=== PATIENT | female | born 1990 | race Caucasian/White ===

== ENCOUNTER 2018-02-07 08:17 | Emergency (ER) | payer OTHER, BC ==
[~2018-02-07] VITALS: Ht 157.5 cm; Wt 62.7 kg
[2018-02-07 08:19] VITALS: TEMP 37.1; Ht 157.5 cm; Wt 62.7 kg
[2018-02-07 09:40] VITALS: BP 112/67; PULSE 80; O2SAT 99
--- NOTE | 2018-02-07 16:36 | EMERGENCY ROOM VISIT NOTE ---
ED Visit Note First contact with patient: 08:23 Chief Complaint: Head injury. History of Present Illness: Ms. Monterroso is a 27-year-old white female who is brought into the ED via ambulance with a head injury. Patient reports approximately 30 minutes ago she was at work at a local daycare. She reports she was struck in the head in the left temporoparietal area with a soccer ball. She reports at the time of the injury she had no loss of consciousness. She reports since the injury she has had trouble speaking; her speech is slowed and she has intermittently difficulty finding the correct words to use. She has not identified any aggravating or alleviating factors related to this symptom. She has not taken any medications for the symptom prior to arrival at the hospital. She denies any previous similar symptoms. Associated with her difficulty speech she also reports she is having a throbbing pain in the area where the soccer ball struck her head. She describes this discomfort as a throbbing sensation. She rates her discomfort 3/10. Her pain is nonradiating. Has not identified any aggravating or alleviating factors related to the pain. Once again she has not had a medication for pain or her other symptoms prior to arrival at the hospital. She denies dizziness, lightheadedness, visual changes, difficulty swallowing, hearing changes, difficulty ambulating/coordinating body movements, neck/back pain, chest pain, shortness of breath, abdominal pain, nausea/vomiting, extremity weakness/numbness/tingling. Review of Systems: As noted above in history of present illness. All body systems were reviewed and found to be negative as noted above. Past Medical History: Patient denies Current Medications: Patient denies. Allergies to Medications: Patient denies. Social History: Patient denies. Physical Examination: Vital Signs: Date Time Temp Pulse Resp B/P (MAP) Pulse Ox O2 Delivery O2 Flow Rate FiO2 02/07/18 09:40 80 16 112/67 99 02/07/18 08:19 37.1 89 16 123/79 100 Room Air GENERAL: 27-year-old female in mild due to symptoms, nontoxic-appearing, afebrile and hemodynamically stable. NEUROLOGICAL: Awake, alert and oriented to person, place and time. Answering questions appropriately and following commands. Normal gait. Good hand eye coordination. No focal motor or sensory deficits. Romberg test negative. Pronator drift test negative. Cranial nerves II through XII grossly intact. Good short-term and long-term recall. Able to spell and count backwards. Normal heel luis test. Normal rapid alternating movements of the hands and fingers. SKIN: Warm, dry and pink. No soft tissue trauma noted. HEENT: Atraumatic and normocephalic. Skull: No bony swelling/ecchymosis, deformity or crepitus. No raccoons eyes or gillespie signs. No drainage from the ears of the nostril; no hemotympanum. Face: No bony deformity, bony crepitus or ecchymosis. PERRLA. EOMI without nystagmus. Sclera white and conjunctiva pink. Oral cavity moist and pink. Airway is patent. Speech was slowed and slightly choppy; not completely fluid. Her speech was clear and pronunciation perfect. Trachea midline. No jugular venous distention. BACK: No tenderness over the bony cervical and thoracic spine. Full range of motion of the cervical spine. THORAX: Lungs sounds are clear to auscultation and equal bilaterally with symmetrical chest wall. ABDOMEN: Flat, soft and nontender. Positive bowel sounds in all quadrants. No guarding, rigidity or organomegaly. EXTREMITIES: Moves all extremities well on command and with purpose. All distal neurovascular statuses are intact and equal bilaterally. 5/5 muscle strength in all movements of the shoulders, elbows, forearms, wrists, hips, knees, ankles and feet. ED Course: Patient is assessed as noted above. Patient's medication list was reviewed. Patient was offered pain medication and refused. I had a lengthy conversation with the patient and her about the risks and benefits of CAT scan and the possible need for additional scanning if she returned for worsening symptoms. They discuss this issue among themselves and when I arrived in the room for recheck patient reports that she would like to use a watch and wait approach and not have a CAT scan currently. Patient and were educated about today's findings and instructed on her treatment plan; they verbalized understanding and agreement with this plan. Clinical Impression: Closed head injury. Decision-Making: Initially my differential diagnosis I considered closed head injury, severe concussion, intracranial bleed, skull fractures, subdural hematoma and other causes. Disposition: Patient discharged home in stable condition accompanied by her ; prior to departure she was reassessed and subjectively reported she was feeling slightly better and rated her discomfort 2/10 Plan: Patient was encouraged to rest for the next 48 hours; she was signed off of work for 48 hours. Patient was encouraged you 650 mg as needed for pain. Patient was encouraged use ice on areas of pain and swelling 4-5 times a day for 20-30 minutes. Patient was educated on signs of head injury. Patient was encouraged to follow-up with Workmen's Compensation practitioner for definitive care and treatment. She was also encouraged to have Workmen's Compensation provide instruction for her to return to work. Patient was encouraged return the ED for any signs of worsening head injury or any new/concerning symptoms.
== END 2018-02-07 09:41 | disposition home or self-care (01) ==
LOC: EDBD 08:17 → C.EDA 08:18
DX: S09.90XA Unspecified injury of head, initial encounter (principal); R51 Headache; R47.89 Other speech disturbances; W21.02XA Struck by soccer ball, initial encounter; Y92.210 Daycare center as the place of occurrence of the external cause; Y99.0 Civilian activity done for income or pay

== ENCOUNTER 2019-01-17 12:15 | Inpatient (IN) ==
--- OUTSIDE RECORDS SUMMARY | 2019-01-17 12:20 | External Medical Summary | Continuity of Care Document ---
:1990 Author Name Sea Garza, Provider Address Unavailable Unavailable , Care Team Providers Name Role Phone Ervin Berman M.D. Unavailable [email or web address] [email or web address], [email or web address] Unavailable Unavailable Unavailable Unavailable Unavailable Problems History of miscarriage (V13.29) (Z87.59) Encounter for supervision of normal firs t in third trimester (V22.0) (Z34.03) Allergies and Adverse Reactions No Known Drug Allergies (Allergy) Medications Vitamins TABS Refills: 0 Procedures Non-stress test Date: 12-Jan-2019 Immunizations Fluzone Quadrivalent 0.5 ML Intramuscular Suspension P refilled Syringe On: 28-Sep-2018 16:29 Lot #: [id number], SANO[employer] PA[employer]UR Tdap (Adacel) On: 27-Oct-2018 8:29 Lot #: [id number], [employer] PA[employer]UR Family History Unknown Family Member Family history of Multiple gestation (651.90) Status: Active Comments: Family History (O30.90) Family history of anemia (V18.2) (Z83.2) Status: Active Comments: Family History Family history of diabetes mellitus (V18.0) Status: Active Comments: Family History (Z83.3) Family history of cardiac disorder (V17.49) Status: Active Comments: Family History (Z82.49) Father Family history of anemia (V18.2) (Z83.2) Status: Active cousin Family history of anemia (V18.2) (Z83.2) Status: Active aunt Family history of diabetes mellitus (V18.0) (Z83.3) Status: Active Family history of depression (V17.0) (Z81.8) Status: Active uncle Family history of diabetes mellitus (V18.0) (Z83.3) Status: Active Grandfather Family history of cardiac disorder (V17.49) (Z82.49) Status: Active Sister Family history of depression (V17.0) (Z81.8) Status: Active cousin Family history of depression (V17.0) (Z81.8) Status: Active Plan of Treatment Planned Encounters Appointment; Ervin Berman M.D. Start: 19-Jan-2019 15:20 Request Planned Observations Planned Goals not documented Results Group B Strep/LEE 22-Dec-2018 18:33 GRP B BETA STREP CULTURE - LEE ORDERED P ROCEDURE : GRP B Beta Strep Culture -LEE; Speciment : V aginal/Rectal Source of Specimen: Vaginal/ Rectal Group B St rep Culture : No Group B Strep isolated Vital Signs 12-Jan-2019 14:05 Systolic 114 mm[Hg] Diastolic 80 mm[Hg] Weight 158.8 lb Height 62.5 in BSA Calculated 1.74 m2 BMI Calculated 28.58 kg/m2 05-Jan-2019 10:38 Systolic 118 mm[Hg] Diastolic 82 mm[Hg] Weight 158.5 lb Height 62.5 in BSA Calculated 1.74 m2 BMI Calculated 28.53 kg/m2 29-Dec-2018 8:18 Systolic 120 mm[Hg] Diastolic 78 mm[Hg] Weight 155.8 lb Height 62.5 in BSA Calculated 1.73 m2 BMI Calculated 28.04 kg/m2 22-Dec-2018 15:18 Systolic 114 mm[Hg] Diastolic 78 mm[Hg] Weight 157.125 lb Height 62.5 in BSA Calculated 1.74 m2 BMI Calculated 28.28 kg/m2 Encounters Appointment; Alisa Basilio M.D. 12-Jan-2019 14:10 Encounter Diagnosis: Problem not documented Appointment; Roderick Freeman M.D. 05-Jan-2019 10:50 Encounter Diagnosis: Problem not documented Appointment; Ervin Berman M.D. 29-Dec-2018 8:20 Encounter Diagnosis: Problem not documented Appointment; Sandi Meredith M.D. 22-Dec-2018 15:20 Encounter Diagnosis: Problem not documented Appointment; Reagan Palacios M.D. 08-Dec-2018 16:10 Encounter Diagnosis: Problem not documented Appointment; Chanel Booth M.D. 24-Nov-2018 14:40 Encounter Diagnosis: Problem not documented Appointment; Genesis Elena DO 10-Nov-2018 16:20 Encounter Diagnosis: Problem not documented Appointment; Sandi Meredith M.D. 27-Oct-2018 8:20 Encounter Diagnosis: Problem not documented Appointment; Alisa Basilio M.D. 28-Sep-2018 16:00 Encounter Diagnosis: Problem not documented Appointment; OBYULIYA SC2, Ultrasound 28-Sep-2018 15:30 Encounter Diagnosis: Problem not documented Appointment; Joanna Powell M.D. 28-Aug-2018 15:50 Encounter Diagnosis: Problem not documented Appointment; OBGYN SC2, Ultrasound 28-Aug-2018 14:45 Encounter Diagnosis: Problem not documented Appointment; Chanel Booth M.D. 04-Aug-2018 15:40 Encounter Diagnosis: Problem not documented Appointment; Genesis Elena DO 11-Jul-2018 10:10 Encounter Diagnosis: Problem not documented Appointment; Roderick Freeman M.D. 09-Jun-2018 14:40 Encounter Diagnosis: Problem not documented Appointment; OB SC1, Procedure Rm 09-Jun-2018 14:40 Encounter Diagnosis: Problem not documented Appointment; OB SC1, Nursing Station 02-Jun-2018 9:45 Encounter Diagnosis: Problem not documented Appointment; Caprice Almanza CRNP 10-Feb-2018 14:30 Encounter Diagnosis: Problem not documented Appointment; Ervin Berman M.D. 19-Jan-2019 15:20 Encounter Diagnosis: Problem not documented
[2019-01-17] MEDS ORDERED: OXYTOCIN 30 UNITS/500 ML BAG IV PRN ×2 (12:55→12:57)
[2019-01-17] MEDS ORDERED: LACTATED RINGER'S 1,000 ML IV PRN ×3 (12:55→22:00)
--- NOTE | 2019-01-17 13:03 | History & Physical Report ---
Date of Service January 17, 2019 Assessment & Plan (1) with 39 completed weeks gestation: fetus category one (2) PROM (premature rupture of membranes): Cervix is unchanged from her last exam in the office. rom x 4+ hours. Discussed expectant management not knowing when active labor will ensue or beginning pitocin augmentation now. She is agreeable to pitocin now. gbs neg. anticipate . History of Present Illness Chief Complaint: leading fluid Primary Care Provider: NO PCP Patient is a 28yowf with iup at 39 5/7 weeks who presents with c/o lof since 8:45am, clear. Noting some decreased fm. no vb. has been uncomplicated. labs--A+/ab-/pap nl/ ri/rprnr/hepb-/hiv-/gc/ct-/ qs neg/16 week gtt abnl, nl 2 hr/nl 2 hr gtt at 28 weeks, gbs neg. 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 Review of Systems All systems reviewed & are unremarkable except as noted in HPI & below Physical Exam Constitutional: WD/WN, vitals as above Cardiovascular: Extremities: no calf tenderness and no pedal edema Genitourinary: sse--+f/n/p sve--2-3/50/-2/soft/ant toco--difficult tracing, q 2-4 efm--150 with mod variability, accels to 180s, no decels Results & Data Vital Signs (Past 12 Hours) Vital Signs Temp Pulse Resp BP 01/17/19 12:29 98.4 F 109 H 20 113/69 01/17/19 12:23 109 H 113/69 01/17/19 12:21 98.4 F 20
[2019-01-17] MEDS: LACTATED RINGER'S 1,000 ML IV SCH (13:13)
[2019-01-17 13:18] LABS: Hematocrit (blood only) 35.6 % (37-47); Hemoglobin 12.2 g/dL (12.0-16.0); Mean Corpuscular Volume 90.1 fL (80-100); Mean Platelet Volume 10.3 fL (7.4-10.4); Platelet Count 188 K/uL (130-400); RDW Coefficient of Variation 13.9 % (11.5-14.5); RDW Standard Deviation 46.1 fL (36.4-46.3); Red Blood Count 3.95 M/uL (4.2-5.4); White Blood Count 10.49 K/uL (4.8-10.8)
[2019-01-17 13:23] LABS: Mean Corpuscular Hgb Conc 34.3 g/dL (32-36)
--- NOTE | 2019-01-17 20:24 | Labor Progress Brief Note ---
Date of Service January 17, 2019 Subjective contractions more painful Assessment & Plan (1) PROM (premature rupture of membranes): fetus category one. continue current management. will recheck in 2 hours. if no cervical change, plan iupc. Physical Exam Constitutional: WD/WN, vitals as above Genitourinary: cx--4.5/75/-2 toco--q2min, pit at 20 efm--130s with mod variability, accels to 160s, no decels Results & Data Vital Signs (Past 12 Hours) Vital Signs Temp Pulse Resp BP 01/17/19 19:59 72 109/56 L 01/17/19 19:05 98.1 F 20 01/17/19 18:58 78 100/59 L 01/17/19 17:58 98.4 F 78 18 99/62 L 01/17/19 16:56 98.4 F 83 20 106/61 01/17/19 16:03 66 108/65 01/17/19 15:01 81 107/61 01/17/19 15:00 98.6 F 20 01/17/19 14:06 85 20 101/64 01/17/19 13:15 99.1 F 81 20 103/69 01/17/19 12:29 98.4 F 109 H 20 113/69 01/17/19 12:23 109 H 113/69 01/17/19 12:21 98.4 F 20
[2019-01-17] MEDS ORDERED: BUPIVACAINE 0.25% 30 ML VIAL ONE (20:55)
[2019-01-17] MEDS ORDERED: ePHEDrine sulfate 50 MG/ML AMP ONE (20:55)
[2019-01-17] MEDS ORDERED: fentaNYL citrate 100 MCG/2 ML VIAL ONE (20:56)
[2019-01-17] MEDS ORDERED: fentaNYL 2MCG/ML ROPIV 1.25MG/ML 100 ML BAG EPI ONE (20:56)
--- NOTE | 2019-01-17 21:57 | Anesthesiology Consultation ---
Date of Service January 17, 2019 Assessment & Plan Chart Review Chart Review: Acceptable Risk for Labor Epidural Consults Requested none History Height/Weight Height: 5 ft 2 in Weight: 71.668 kg Allergies Allergy/AdvReac Type Severity Reaction Status Date / Time No Known Allergies Allergy Unverified 02/07/18 09:13 Medications Home Medications Medication Instructions Recorded Confirmed Last Taken PNV cmb#95-ferrous fumarate-FA 1 tab PO DAILY 01/17/19 01/17/19 01/16/19 23:00 [] Active Medications Generic Name Dose Route Start Last Admin Trade Name Freq PRN Reason Stop Dose Admin Lactated Ringer's 1,000 mls @ 125 mls/hr 01/17/19 13:00 01/17/19 21:27 Lr IV 01/19/19 12:59 Infused .Q8H STACEY Infusion Lactated Ringer's 1,000 mls @ 999 mls/hr 01/17/19 12:55 01/17/19 21:27 Lr IV 02/16/19 12:54 125 mls/hr .Q1H1M PRN Infusion Pre-Anesthesia Oxytocin 30 units in 500 mls @ 20 mls/hr 01/17/19 12:57 01/17/19 19:02 Pitocin IV 01/19/19 12:56 1.2 units/hr .Q24H PRN 20 mls/hr Labor Induction/Augmentation Titration Protocol 1.2 UNITS/HR Past Medical History Medical History History of varicella Spontaneous 2015 at 6 weeks Social History Smoking Status: Never smoker Hx Alcohol Use: No Hx Substance Use: No Physical Exam Vital Signs Last Vital Signs Temp 37.0 C 01/17/19 21:09 Pulse 73 01/17/19 21:55 Resp 18 01/17/19 21:50 BP 106/58 L 01/17/19 21:55 Pulse Ox 95 01/17/19 21:52 Testing Laboratory Results 01/17/19 13:06
[2019-01-17] MEDS ORDERED: NALOXONE HCL 1 MG in SODIUM CHLORIDE 0.9% 1000ML 1,000 ML IV PRN (22:00)
[2019-01-17] MEDS ORDERED: DiphenhydrAMINE HCL 50 MG/ML VIAL IV PRN (22:00)
[2019-01-17] MEDS ORDERED: fentaNYL 2MCG/ML ROPIV 1.25MG/ML 100 ML BAG EPI PRN (22:00)
[2019-01-17] MEDS ORDERED: ePHEDrine sulfate 50 MG/ML AMP IV PRN (22:00)
[2019-01-17] MEDS ORDERED: NALOXONE HCL 0.4 MG/1 ML VIAL/CARP IV PRN (22:00)
[2019-01-17] MEDS ORDERED: NALBUPHINE HCL INJ 10 MG/ML AMP IV PRN (22:00)
--- NOTE | 2019-01-17 22:49 | Labor Progress Brief Note ---
Date of Service January 17, 2019 Subjective comfortable after epidural Assessment & Plan (1) PROM (premature rupture of membranes): fetus category one. continue current management. will recheck in 2 hours. if no cervical change, plan iupc. Physical Exam Constitutional: WD/WN, vitals as above Genitourinary: cx--5-6/-1 toco--q2-3min, pit at 20 efm--145 with mod variability, +accels, no decels Results & Data Vital Signs (Past 12 Hours) Vital Signs Temp Pulse Resp BP Pulse Ox 01/17/19 22:45 111 H 94/55 L 01/17/19 22:42 71 94 01/17/19 22:40 74 94 01/17/19 22:37 71 94 01/17/19 22:35 68 94 01/17/19 22:32 71 94 01/17/19 22:30 77 20 96/56 L 94 01/17/19 22:27 71 95 01/17/19 22:24 68 93 01/17/19 22:22 66 94 01/17/19 22:19 71 94 01/17/19 22:17 75 95 01/17/19 22:15 75 18 99/59 L 01/17/19 22:12 71 95 01/17/19 22:11 78 102/58 L 94 01/17/19 22:10 20 01/17/19 22:07 78 96 01/17/19 22:06 75 103/59 L 01/17/19 22:05 16 01/17/19 22:02 74 97 01/17/19 22:01 81 113/57 L 01/17/19 22:00 98.2 F 20 01/17/19 21:57 81 96 01/17/19 21:55 73 20 106/58 L 01/17/19 21:53 95 H 103/66 01/17/19 21:52 84 95 01/17/19 21:51 92 H 100/60 01/17/19 21:50 18 01/17/19 21:49 83 103/63 01/17/19 21:47 73 109/59 L 95 01/17/19 21:45 94 H 20 103/57 L 01/17/19 21:43 95 H 123/66 01/17/19 21:42 99 H 97 01/17/19 21:41 93 H 122/59 L 01/17/19 21:40 88 20 91 01/17/19 21:37 92 H 97 01/17/19 21:32 91 H 97 01/17/19 21:11 70 115/71 01/17/19 21:09 98.6 F 20 01/17/19 19:59 72 109/56 L 01/17/19 19:05 98.1 F 20 01/17/19 18:58 78 100/59 L 01/17/19 17:58 98.4 F 78 18 99/62 L 01/17/19 16:56 98.4 F 83 20 106/61 01/17/19 16:03 66 108/65 01/17/19 15:01 81 107/61 01/17/19 15:00 98.6 F 20 01/17/19 14:06 85 20 101/64 01/17/19 13:15 99.1 F 81 20 103/69 01/17/19 12:29 98.4 F 109 H 20 113/69 01/17/19 12:23 109 H 113/69 01/17/19 12:21 98.4 F 20
[2019-01-18] MEDS: LACTATED RINGER'S 1,000 ML IV SCH (01:07)
[2019-01-18] MEDS ORDERED: OXYCODONE/ACETAMINOPHEN 5mg/325mg TAB PO PRN (03:35)
[2019-01-18] MEDS ORDERED: ACETAMINOPHEN 325 MG TAB PO PRN (03:35)
--- NOTE | 2019-01-18 04:10 | Delivery Summary ---
DATE OF OPERATION: 01/18/2019 PREOPERATIVE DIAGNOSES: 1. Intrauterine at 39+ weeks. 2. Rupture of membranes prior to the onset of labor. POSTOPERATIVE DIAGNOSES: 1. Intrauterine at 39+ weeks. 2. Rupture of membranes prior to the onset of labor. PROCEDURES: 1. Pitocin augmentation. 2. Epidural anesthetic. 3. Normal spontaneous vaginal delivery. 4. Vaginal laceration with repair. SURGEON: Sandi Meredith MD ANESTHESIA: Epidural. ESTIMATED BLOOD LOSS: 350 mL PROCEDURE: The patient presented to labor and delivery with spontaneous rupture of membranes without significant contractions. Her cervix was unchanged from the office. Pitocin augmentation was initiated. When she became uncomfortable, she underwent an epidural anesthetic. She then progressed on 20 milliunits of Pitocin to complete-complete and pushed for a little over an hour to deliver a viable female infant in SIVAN presentation. The nose and mouth were bulb suctioned. There was no nuchal cord and the rest of the infant was then delivered without difficulty. The nose and mouth were again bulb suctioned and the was placed on maternal abdomen for drying and attention. The cord was clamped and cut and cord blood was obtained. Placenta was delivered spontaneously intact with a 3-vessel cord. Cervix, sulci and rectum were examined and found to be intact. Perineum was intact as well. The tear was separation of the vagina from the perineal body, which was repaired with 3-0 Vicryl in a normal standard fashion. Some slight labial lacerations were repaired with interrupted sutures of 4-0 Vicryl. Hemostasis was obtained with dilute Pitocin and fundal massage. Estimated blood loss 350 mL. Apgars 8 and 9. Mother and baby doing well at the end of the delivery. I attest to the content of the Intraoperative Record and any orders documented therein. Any exception s are noted below.
[2019-01-18] MEDS ORDERED: SUPERCREAM 0.870% 15 GM JAR EXT PRN (04:20)
[2019-01-18] MEDS ORDERED: DIPHTHERIA/TETANUS/PERTUSSIS 0.5 ML SYR/VIAL IM ONE (04:20)
[2019-01-18] MEDS ORDERED: HYDROCORTISONE ACETATE 25 MG SUPP PR PRN (04:20)
[2019-01-18] MEDS ORDERED: BISACODYL 10 MG SUPP PR PRN (04:20)
[2019-01-18] MEDS ORDERED: BENZOCAINE 20% AER SPR 82.5 GM CAN EXT PRN (04:20)
[2019-01-18] MEDS ORDERED: OXYTOCIN 30 UNITS/500 ML BAG IV PRN (04:20)
[2019-01-18] MEDS: IBUPROFEN 600 MG TAB PO PRN ×3 (04:59→18:14)
--- NOTE | 2019-01-18 08:09 | Anesthesia Procedure Note ---
Date of Service January 18, 2019 Anesthesia Post Epidural Note Vital Signs Vital Signs: Temp Pulse Resp BP Pulse Ox 36.9 C 96 H 18 109/60 94 01/18/19 05:48 01/18/19 05:33 01/18/19 05:48 01/18/19 05:48 01/18/19 03:32 Pain Intensity Bilateral Lower Abdomen: Pain Intensity: 3 Notes Mental Status: alert / awake / arousable and participated in evaluation Nausea / Vomiting: adequately controlled Pain: adequately controlled Airway Patency, RR, SpO2: stable & adequate BP & HR: stable & adequate Hydration State: stable & adequate Neuraxial Anesthesia: was administered and sensory block is resolving Anesthetic Complications: no major complications apparent and Pt Satisfied with anesthetic care Epidural: Removed without complications and With tip intact
[2019-01-18] MEDS: PRENATAL VITAMIN 1 TAB PO SCH (09:14)
[2019-01-18] MEDS: DOCUSATE SODIUM 100 MG CAP PO SCH ×2 (09:14→22:34)
[2019-01-19] MEDS: IBUPROFEN 600 MG TAB PO PRN ×3 (00:09→17:59)
--- NOTE | 2019-01-19 08:15 | Obstetrical Progress Note ---
Date of Service <Faith Bailey MD - Last Filed: 01/19/19 08:15> January 19, 2019 Assessment & Plan <Faith Bailey MD - Last Filed: 01/19/19 08:15> (1) care following vaginal delivery: 28yo with at 39.5wks. GBS neg PPD #1 -Routine care -Ambulation encouraged -pain control Subjective <Faith Bailey MD - Last Filed: 01/19/19 08:15> Ambulation: ambulating normally Voiding: no voiding problems Passing Gas:: Yes Diet Tolerance:: regular diet Lochia:: Moderate Feeding Type:: breast feeding Current Pain Level(1-10): 2 Respiratory: no dyspnea Cardiovascular: no chest pain, no palpitations, no lightheadedness and no calf pain Gastrointestinal: no nausea and no vomiting Neurologic: no headache(s) Physical Exam <Faith Bailey MD - Last Filed: 01/19/19 08:15> Vital Signs (Past 24 Hours) Last Vital Signs Temp 36.5 C 01/19/19 00:05 Pulse 81 01/19/19 00:05 Resp 18 01/19/19 00:05 BP 112/71 01/19/19 00:05 Pulse Ox 94 01/18/19 03:32 Respiratory normal respiratory effort, lungs clear to auscultation Cardiovascular Rate/Rhythm: regular rate and regular rhythm Extremities: no calf tenderness Genitourinary OB Exam Abdomen: + fundal height Fundus: + firm and + relation to umbilicus (at umbilicus) Results & Data <Faith Bailey MD - Last Filed: 01/19/19 08:15> Medications Administered Home Medications PNV cmb#95-ferrous fumarate-FA [] 1 tab PO DAILY 01/17/19 [History Confirmed 01/17/19] Active Medications Acetaminophen (Tylenol) 650 mg PO Q6H PRN PRN Reason: Pain/DENIS/Fever Stop: 02/17/19 03:34 Benzocaine (Dermoplast Pain Relieving [place]) 1 appln EXT PRN PRN PRN Reason: Perineal Discomfort Stop: 02/17/19 04:19 Last Admin: 01/18/19 05:30 Dose: 82.5 appln Documented by: Bisacodyl (Dulcolax) 5 mg PO 1999 [facility] Stop: 01/19/19 20:01 Bisacodyl (Dulcolax) 10 mg HI DAILY PRN PRN Reason: No BM on 2nd post- day Stop: 02/17/19 04:19 Cocaine HCl (Supercream 0.870%) 1 gm EXT BID PRN PRN Reason: Hemorrhoidal Inflammation Stop: 02/01/19 04:19 Last Admin: 01/18/19 05:30 Dose: 1 appln Documented by: Docusate Sodium (Colace) 100 mg PO BID [facility] Stop: 02/17/19 08:59 Last Admin: 01/18/19 22:34 Dose: 100 mg Documented by: Hydrocortisone (Anusol Hc) 25 mg HI BID PRN PRN Reason: Hemorrhoidal Inflammation Stop: 02/17/19 04:19 Oxytocin (Pitocin) 30 units in 500 mls @ 333.333 mls/hr IV .Q1H30M PRN; Protocol PRN Reason: Bleeding Control Stop: 02/17/19 04:19 Ibuprofen (Motrin) 600 mg PO Q4H PRN PRN Reason: Pain/DENIS/Cramping/Fever Stop: 02/17/19 03:34 Last Admin: 01/19/19 00:09 Dose: 600 mg Documented by: Oxycodone/Acetaminophen (Percocet 5mg/325mg) 1 tab PO Q4H PRN PRN Reason: Pain not relieved by... Stop: 02/01/19 03:34 Prenat Multivit/[place]/Iron/Folic Ac ( Vitamin) 1 tab PO QAM [facility] Stop: 02/17/19 08:59 Last Admin: 01/18/19 09:14 Dose: 1 tab Documented by: <Joanna Powell MD, FACOG - Last Filed: 01/19/19 08:49> Co-Signing Physician Notes Resident Physician Supervision Note: I interviewed and examined the patient. Discussed with Dr. Faith Bailey and dallin gallego with findings and plan as documented in the note. Any exceptions or clarifications are listed here: [None] Documented By: Joanna Powell MD, FACOG ACTIVITY RECOMMENDATIONS: * Gradual return to full activity over the next 2-3 weeks. * No lifting - nothing heavier than baby over the next 2-3 weeks. * Do not engage in vigorous exercise, sexual activity or sports until cleared by your physician. * Do not drive or operate any motorized equipment until cleared by your physician. * You may shower/bathe daily. MEDICATIONS: For discomfort or pain, you may use Acetaminophen (Tylenol), Ibuprofen (Advil), or Naproxen (Aleve) following the package directions. For constipation you may use Colace following the package directions. BREAST CARE: If you are not breast feeding: * Wear a supportive bra 24 hours a day for one to two weeks. * Avoid stimulating your breasts and nipples as much as possible during the first few weeks after delivery. * When taking a shower, have the warm water hit your back, not breasts. * When your breasts feel full, apply ice packs. Usually three to four times a day helps ease the discomfort. * Take a mild pain medication (Tylenol / Motrin) when you are uncomfortable. If breast feeding: * Use breast milk to lubricate nipples. Lansinoh cream may be used for sore nipples. You do not need to remove cream prior to breast feeding. If using a different brand of cream, check the label for directions regarding removal of cream prior to nursing. * Wear a supportive bra. * If having problems with breasts or breast feeding, call a consulta nt or your health care provider. EPISIOTOMY CARE: After delivery, if you have an episiotomy (stitches), the following steps will ease discomfort and aid healing. * For the first 24 hours after delivery, place ice packs next to your episiotomy to help reduce swelling. * After the first 24 hour-period, sitz baths, either portable or in the tub, are suggested. A shower with a shower arm sprayed over the episiotomy may be comforting. * Sisi care should be done after each voiding and bowel movement. Squirt warm water from a plastic bottle over the perineum (region of the body between the anus and urinary opening) and pat dry. * Use Dermoplast to ease discomfort. Shake container. [place] directly over the episiotomy. Place a Tucks on a clean sanitary pad next to your episiotomy. SPECIAL CARE INSTRUCTIONS: When you are discharged from the hospital, it is important for you to follow the instructions listed below: * During the first week at home, you should be able to care for yourself and your baby. In addition, the usual light household activities are encouraged. * Limit your activities to the way you feel. Do not try to clean the house or move furniture. Be sensible. * If you actively engage in sports and have done so up until the time of your delivery, you may resume these activities as soon as you feel able. This may take up to one month or even longer. Use good judgment. * Continue to take your vitamins for at least six weeks after the b irth of your baby. * Your diet need not be limited unless you were on a special diet before your delivery. Breast-feeding mothers need around 2500 calories per day and at least 64-80 ounces of fluid per day (8 to 10 glasses). * You should eat foods from the four major food groups. Crash diets or fad diets are to be avoided. Eating lean meats, fresh fruits and vegetables, low-fat dairy products, high fiber foods and a regular exercise program, will help you get back to your pre- weight without putting your health at risk. * Constipation is sometimes a problem after delivery. Take a mild laxative as needed. If breast feeding, Milk of Magnesia is acceptable to use. You may use a suppository or Fleets enema if no episiotomy. * A daily shower or tub bath is suggested. Be sure to thoroughly and gently dry the perineum. * A bloody vaginal discharge will usually continue until around four weeks post . A small amount of bleeding may continue for as long as six weeks. Vaginal discharge changes from the bright red bleeding after delivery to pink then brownish and finally yellowish-pink before becoming white and disappearing. * Bleeding may increase with activity. Your first period may come in 4-8 weeks. If you are breast feeding, your period may be delayed even longer. * [place] (sex) can begin whenever both you and your partner feel comfortable and do not have any form of genital infection. It is recommended that you wait at least six weeks for internal and external healing to occur. If you have questions, please talk to your health care practitioner. A condom should be used to prevent infection and . * Foreplay, gentle intercourse and lubrication is very important the first several times to prevent pain. A water-based lubricant such as K-Y jelly or Astroglide may be used. * If you have RH negative blood and your baby is RH positive, you will receive RHOGAM by injection prior to discharge. The nurse will give you a card to keep with you that has the date and place that you received RHOGAM after delivery. * During your care, you had a Rubella screen done to check for the presence of rubella antibodies in your blood. If your test was negative, you will receive a Rubella vaccine prior to discharge. This vaccine may cause a fever, soreness at the injection site and flu-like symptoms. If these symptoms persist, notify your health care practitioner. is not advised for one month after a Rubella vaccine. * Verbalizes understanding of car seat law as reviewed with patient nursing. * Car Seat hand-out given and reviewed with patient by nursing. * Shaken baby information reviewed with patient by nursing. Call you doctor if: * Heavy bleeding (saturating several pads an hour) or passing clots the size of your fist. * A fever >101 degrees F (38.3 degrees C) on two occasions four hours apart and/or chills. * Unusual pain in the pelvic or vaginal areas. * "Baby Blues" lasting longer than two weeks. If you have any questions or concerns, call your health care practitioner at . FOLLOW UP VISIT: * Please call the office at to schedule a 6 week examination. It is important you keep this appointment. It is important for you to make arrangements for either yearly or twice yearly check-ups thereafter.
[2019-01-19] MEDS: PRENATAL VITAMIN 1 TAB PO SCH (08:50)
[2019-01-19] MEDS: DOCUSATE SODIUM 100 MG CAP PO SCH ×2 (08:50→21:22)
[2019-01-19 17:46] VITALS: O2SAT 96
[2019-01-19] MEDS: BISACODYL 5 MG TABEC PO SCH ×2 (20:34→20:44)
[2019-01-19 23:58] VITALS: TEMP 98.2
[2019-01-20] MEDS: IBUPROFEN 600 MG TAB PO PRN (00:58)
--- NOTE | 2019-01-20 06:23 | Obstetrical Progress Note ---
Date of Service <Faith Bailey MD - Last Filed: 01/20/19 06:25> January 20, 2019 Assessment & Plan <Faith Bailey MD - Last Filed: 01/20/19 06:25> (1) care following vaginal delivery: 28yo with at 39.5wks. GBS neg PPD #2 -Pt doing well -Discharge today; instructions reviewed Subjective <Faith Bailey MD - Last Filed: 01/20/19 06:25> Ambulation: ambulating normally Voiding: no voiding problems Diet Tolerance:: regular diet Lochia:: Moderate Feeding Type:: breast feeding Respiratory: no dyspnea Cardiovascular: no chest pain, no edema and no calf pain Physical Exam <Faith Bailey MD - Last Filed: 01/20/19 06:25> Vital Signs (Past 24 Hours) Last Vital Signs Temp 36.8 C 01/19/19 23:25 Pulse 85 01/19/19 23:25 Resp 16 01/19/19 23:25 BP 100/62 01/19/19 23:25 Pulse Ox 96 01/19/19 23:25 Respiratory normal respiratory effort, lungs clear to auscultation Cardiovascular Rate/Rhythm: regular rate and regular rhythm Extremities: no calf tenderness and no pedal edema Genitourinary OB Exam Abdomen: + fundal height Fundus: + firm and + relation to umbilicus (at umbilicus) Results & Data <Faith Bailey MD - Last Filed: 01/20/19 06:25> Medications Administered Home Medications PNV cmb#95-ferrous fumarate-FA [] 1 tab PO DAILY 01/17/19 [History Confirmed 01/17/19] Active Medications Acetaminophen (Tylenol) 650 mg PO Q6H PRN PRN Reason: Pain/DENIS/Fever Stop: 02/17/19 03:34 Benzocaine (Dermoplast Pain Relieving [place]) 1 appln EXT PRN PRN PRN Reason: Perineal Discomfort Stop: 02/17/19 04:19 Last Admin: 01/18/19 05:30 Dose: 82.5 appln Documented by: Bisacodyl (Dulcolax) 10 mg NE DAILY PRN PRN Reason: No BM on 2nd post- day Stop: 02/17/19 04:19 Cocaine HCl (Supercream 0.870%) 1 gm EXT BID PRN PRN Reason: Hemorrhoidal Inflammation Stop: 02/01/19 04:19 Last Admin: 01/18/19 05:30 Dose: 1 appln Documented by: Docusate Sodium (Colace) 100 mg PO BID [facility] Stop: 02/17/19 08:59 Last Admin: 01/19/19 21:22 Dose: 100 mg Documented by: Hydrocortisone (Anusol Hc) 25 mg NE BID PRN PRN Reason: Hemorrhoidal Inflammation Stop: 02/17/19 04:19 Oxytocin (Pitocin) 30 units in 500 mls @ 333.333 mls/hr IV .Q1H30M PRN; Protocol PRN Reason: Bleeding Control Stop: 02/17/19 04:19 Ibuprofen (Motrin) 600 mg PO Q4H PRN PRN Reason: Pain/DENIS/Cramping/Fever Stop: 02/17/19 03:34 Last Admin: 01/20/19 00:58 Dose: 600 mg Documented by: Oxycodone/Acetaminophen (Percocet 5mg/325mg) 1 tab PO Q4H PRN PRN Reason: Pain not relieved by... Stop: 02/01/19 03:34 Prenat Multivit/Slab Off Mill Tender/Iron/Folic Ac ( Vitamin) 1 tab PO QAM [facility] Stop: 02/17/19 08:59 Last Admin: 01/19/19 08:50 Dose: 1 tab Documented by: <Genesis Elena DO - Last Filed: 01/20/19 06:41> Co-Signing Physician Notes Resident Physician Supervision Note: I was present with the resident physician during the history and exam. I d iscussed the case with the resident and agree with the findings and plan as documented in the note. Any exceptions or clarifications are listed here: PPD#2 doing well. Discharge instructions reviewed. Documented By: Genesis Elena DO [facility] [place]
[2019-01-20 08:07] VITALS: BP 111/72
[2019-01-20 08:10] LABS: Hematocrit (blood only) 37.5 % (37-47); Hemoglobin 12.9 g/dL (12.0-16.0)
[2019-01-20] MEDS: DOCUSATE SODIUM 100 MG CAP PO SCH (08:51)
[2019-01-20] MEDS: PRENATAL VITAMIN 1 TAB PO SCH (08:51)
[2019-01-20 10:31] VITALS: PULSE 96
== END 2019-01-20 13:30 | disposition home or self-care (01) | DRG 807 ==
LOC: OPB 12:15 → 4S1 12:21 → 4S2 01-18 05:35

== ENCOUNTER 2021-04-30 09:09 | Inpatient (IN) ==
[2021-04-30] MEDS ORDERED: OXYTOCIN 30 UNITS/500 ML BAG IV PRN ×3 (09:27→13:51)
[2021-04-30] MEDS ORDERED: LACTATED RINGER'S 1,000 ML IV PRN (09:27)
[2021-04-30] MEDS ORDERED: SODIUM CHLORIDE 0.9% INJ 10 ML VIAL ONE (09:55)
[2021-04-30] MEDS ORDERED: BUPIVACAINE 0.25% 30 ML VIAL ONE (09:55)
[2021-04-30] MEDS ORDERED: ePHEDrine sulfate 50 MG/ML AMP ONE (09:55)
[2021-04-30] MEDS ORDERED: fentaNYL citrate 100 MCG/2 ML VIAL ONE (09:56)
[2021-04-30] MEDS ORDERED: fentaNYL 2MCG/ML ROPIVACAINE 1.25MG/ML 100 ML BAG EPI ONE (09:56)
[2021-04-30 10:09] LABS: Hematocrit (blood only) 37.6 % (37-47); Hemoglobin 12.5 g/dL (12.0-16.0); Mean Corpuscular Hemoglobin 31.1 pg (25-34); Mean Corpuscular Hgb Conc 33.2 g/dL (32-36); Mean Corpuscular Volume 93.5 fL (80-100); Mean Platelet Volume 10.4 fL (7.4-10.4); Platelet Count 183 K/uL (130-400); RDW Coefficient of Variation 13.8 % (11.5-14.5); RDW Standard Deviation 47.7 fL (36.4-46.3); Red Blood Count 4.02 M/uL (4.2-5.4); White Blood Count 7.76 K/uL (4.8-10.8)
[2021-04-30] MEDS ORDERED: fentaNYL 2MCG/ML ROPIVACAINE 1.25MG/ML 100 ML BAG EPI PRN (10:29)
[2021-04-30] MEDS ORDERED: ePHEDrine sulfate 50 MG/ML AMP IV PRN (10:29)
[2021-04-30] MEDS ORDERED: NALOXONE HCL 1 MG in SODIUM CHLORIDE 0.9% 1000ML 1,000 ML IV PRN (10:29)
[2021-04-30] MEDS ORDERED: NALOXONE HCL 0.4 MG/1 ML VIAL/CARP IV PRN (10:29)
[2021-04-30] MEDS ORDERED: ONDANSETRON INJ 2 MG/ML 2 ML VIAL IV PRN (10:29)
[2021-04-30] MEDS ORDERED: NALBUPHINE HCL INJ 10 MG/ML AMP IV PRN (10:29)
[2021-04-30] MEDS ORDERED: diphenhydrAMINE 50 MG/ML VIAL IV PRN (10:29)
--- NOTE | 2021-04-30 10:30 | Anesthesiology Consultation ---
Date of Service April 30, 2021 Assessment & Plan (1) Encounter for pre-operative examination: Chart Review Chart Review: Patient NOT seen in Pre Admission Testing and Acceptable Risk for Labor Epidural Consults Requested none History Allergies Allergy/AdvReac Type Severity Reaction Status Date / Time No Known Drug Allergies Allergy Verified 04/27/21 14:26 Medications Home Medications Medication Instructions Recorded Confirmed Last Taken vit no.95-ferrous 1 tab PO DAILY 01/17/19 04/27/21 01/16/19 23:00 fumarate 28 mg-folic acid 800 mcg tablet () Active Medications Generic Name Dose Route Start Last Admin Trade Name Freq PRN Reason Stop Dose Admin Lactated Ringer's 1,000 mls @ 125 mls/hr 04/30/21 09:27 04/30/21 10:32 Lr IV 05/02/21 09:26 125 mls/hr .Q8H PRN Infusion L&D Protocol Protocol Past Medical History Medical History Concussion History of varicella PROM (premature rupture of membranes) Spontaneous 2015 at 6 weeks Exercise / Class Metabolic Activity II 4-5 Yardwork/Stairs/Walk up hill Past Family History Family History Father Anemia Sister Depression Aunt Depression Diabetes Uncle Diabetes Past Surgical History Surgical History No history of previous surgery Past Anesthesia History No Hx of Anesthesia Complications and No Family Hx of Anesthesia Complications History of PONV No Hx of PONV and No Hx of Motion Sickness Social History Smoking Status: Never smoker Do You Dip or Chew Tobacco: No Hx Alcohol Use: No Hx Substance Use: No Physical Exam Vital Signs Last Vital Signs Temp 37.1 C 04/30/21 10:02 Pulse 74 04/30/21 10:40 Resp 18 04/30/21 10:02 BP 107/58 L 04/30/21 10:40 Pulse Ox 95 04/30/21 10:40 Testing Laboratory Results 04/30/21 09:55
--- NOTE | 2021-04-30 10:38 | Labor Progress Brief Note ---
Date of Service April 30, 2021 Subjective Patient arrived earlier this morning for planned elective IOL No OB c/o. Chart reviewed. Assessment & Plan (1) Encounter for elective induction of labor: Plan: Given floating vertex, pitocin first, then AROM only after applied. However, concern for SROM possibly occurring before head well applied, and patient is certain she wants epidural / is already advanced dilation, so she was encouraged to go ahead and get epidural early in the process. This provides secure anesthesia in the event that SROM happens before the head is well applied and a stat delivery were to become required. She is agreeable. Admission and Anticipated Discharge Date Admission Date: April 30, 2021 Physical Exam Physical Exam: 6/80/-2 on arrival despite no contractions appreciated by patient. Bulging bag without presenting part immediately appreciated; fundal pressure brings vertex down to where it is easily palpable, was in RLQ. FHT Cat 1 [place] quiet Results & Data ([facility]) Vital Signs (Past 12 Hours) Vital Signs Temp Pulse Resp BP Pulse Ox 04/30/21 10:30 84 95 04/30/21 10:25 73 96 04/30/21 10:24 74 94 04/30/21 10:20 71 96 04/30/21 10:02 98.8 F 76 18 93/56 L Coding Level of Care Code None Diagnoses Encounter for elective induction of labor Z34.90
--- NOTE | 2021-04-30 13:29 | Delivery Summary ---
Vaginal Delivery Summary Date of Service April 30, 2021 Vaginal Delivery Summary DIAGNOSES: 1. Cohn intrauterine at 40w4d gestation. 2. Induction of labor. 3. Group B Streptococcus Neg. PROCEDURE: Spontaneous vaginal delivery and repair of first degree laceration. SURGEON: Chanel Booth MD. METAL GAUGE MAKER: None. ESTIMATED BLOOD LOSS: 400 mL. COMPLICATIONS: None. PLACENTA: Spontaneous and intact with a 3-vessel cord. DISPOSITION: Stable to labor and delivery. DESCRIPTION: The patient pushed well and brought the head to in DOA position. The 's head was allowed to deliver with contraction force and no further active pushing, with the perineum protected during this time. There was no nuchal cord. The left shoulder was anterior. The shoulders and body delivered without any difficulty, and the was placed on the maternal abdomen. It was vigorous and moving all extremities, and making respiratory efforts. The cord was doubly clamped by the MD and then cut by the FOB. The placenta delivered spontaneously and was noted to be intact and with a 3VC. The cervix, vagina and perineum were examined and were found to have a first degree laceration of the perineal skin, which was repaired in running locked fashion with 3-0 vicryl suture. The fundus was firm and lochia minimal immediately after delivery. [facility] Vaginal Delivery Charge Vaginal Delivery Codes: 70345 global code for the antepartum, delivery, and post-
[2021-04-30] MEDS ORDERED: bisacodyL 10 MG SUPP PR PRN (13:51)
[2021-04-30] MEDS ORDERED: ACETAMINOPHEN 325 MG TAB PO PRN (13:51)
[2021-04-30] MEDS ORDERED: SUPERCREAM 0.870% 15 GM JAR EXT PRN (13:51)
[2021-04-30] MEDS ORDERED: HYDROCORTISONE ACETATE 25 MG SUPP PR PRN (13:51)
[2021-04-30] MEDS ORDERED: DIPHTHERIA/TETANUS/PERTUSSIS 0.5 ML SYR/VIAL IM ONE (13:51)
[2021-04-30] MEDS ORDERED: BENZOCAINE 20% AER SPR 82.5 GM CAN EXT PRN (13:51)
--- NOTE | 2021-04-30 14:10 | Anesthesia Procedure Note ---
Date of Service April 30, 2021 Anesthesia Post Epidural Note Vital Signs Vital Signs: Temp Pulse Resp BP Pulse Ox 37.1 C 64 18 101/62 94 04/30/21 10:53 04/30/21 14:02 04/30/21 10:02 04/30/21 14:02 04/30/21 13:18 Notes Mental Status: alert / awake / arousable and participated in evaluation Patient Amnestic to Procedure: No Nausea / Vomiting: adequately controlled Pain: adequately controlled Airway Patency, RR, SpO2: stable & adequate BP & HR: stable & adequate Hydration State: stable & adequate Neuraxial Anesthesia: was administered and sensory block is resolving Anesthetic Complications: no major complications apparent and Pt Satisfied with anesthetic care Epidural: Removed without complications and With tip intact
[2021-04-30] MEDS: IBUPROFEN 600 MG TAB PO PRN ×2 (16:07→20:52)
[2021-04-30] MEDS: DOCUSATE SODIUM 100 MG CAP PO SCH (20:53)
[2021-05-01] MEDS: IBUPROFEN 600 MG TAB PO PRN ×3 (04:28→20:09)
[2021-05-01 07:05] LABS: Hematocrit (blood only) 38.1 % (37-47); Hemoglobin 12.7 g/dL (12.0-16.0); Mean Corpuscular Hemoglobin 31.3 pg (25-34); Mean Corpuscular Hgb Conc 33.3 g/dL (32-36); Mean Corpuscular Volume 93.8 fL (80-100); Mean Platelet Volume 10.5 fL (7.4-10.4); Platelet Count 159 K/uL (130-400); RDW Coefficient of Variation 13.9 % (11.5-14.5); RDW Standard Deviation 47.6 fL (36.4-46.3); Red Blood Count 4.06 M/uL (4.2-5.4); White Blood Count 8.45 K/uL (4.8-10.8)
--- NOTE | 2021-05-01 07:24 | Obstetrical Progress Note ---
Date of Service <Nicole BrooksDO - Last Filed: 05/01/21 07:24> May 01, 2021 Assessment & Plan <Nicole ToddDO - Last Filed: 05/01/21 07:24> (1) Encounter for care and examination after delivery: 30 yo post op day1 from , doing well. -Continue routine post care. -vital signs reviewed and WNL (Tmax 36.8) -Blood Type A+, GBS-, Rubella immune -Encourage ambulation, monitor and control pain with Motrin, tylenol PRN, resume regular diet, monitor lochia -encourage breast feeding -hemoglobin 12.5 (04/30) Day #:: 1 <Chanel Booth MD - Last Filed: 05/01/21 07:35> (1) Encounter for care and examination after delivery: Subjective <Nicole ToddDO - Last Filed: 05/01/21 07:24> Ambulation: ambulating normally Voiding: no voiding problems Passing Gas:: Yes Diet Tolerance:: regular diet Lochia:: Small Feeding Type:: breast feeding Current Pain Level(1-10): 1 (pain well controlled on medication) Review of Systems Positive abdominal cramps while feeding Denies fever, chills, sweats Denies shortness of breath, difficulty breathing, chest pain, palpitations, chest pressure. Denies breast pain. Denies dysuria. Denies headache or changes in vision. Physical Exam <Nicole BrooksDO - Last Filed: 05/01/21 07:24> General: Alert, oriented. No acute distress. Cardiac: Regular rate and rhythm, no murmurs/rubs/gallops. Respiratory: Clear to auscultation bilaterally a/p, no wheezes/rales/rhonchi. No increased work of breathing. Symmetrical chest rise. No respiratory distress. Abdomen: Soft, nontender, nondistended. Bowel sounds present. Uterus: Uterine fundus firm, palpable at umbilicus. Lower Extremities: No lower extremity edema or swelling. No deep calf pain. Adán's negative bilaterally.. Results & Data ([facility]) <Nicole ToddDO - Last Filed: 05/01/21 07:24> Vital Signs (Past 12 Hours) Vital Signs Temp Pulse Resp BP Pulse Ox 05/01/21 03:30 36.8 C 87 16 99/63 L 97 05/01/21 00:00 36.8 C 69 16 101/63 97 04/30/21 20:00 36.7 C 65 16 98/59 L 97 Laboratory Results 05/01/21 04/30/21 04/30/21 Range/Units 06:40 10:31 10:31 WBC 8.45 (4.8-10.8) K/uL RBC 4.06 L (4.2-5.4) M/uL Hgb 12.7 (12.0-16.0) g/dL Hct 38.1 (37-47) % MCV 93.8 (80-100) fL MCH 31.3 (25-34) pg MCHC 33.3 (32-36) g/dL RDW Std Deviation 47.6 H (36.4-46.3) fL RDW Coeff of Roni 13.9 (11.5-14.5) % Plt Count 159 (130-400) K/uL MPV 10.5 H (7.4-10.4) fL COVID-19 Eval [facility] [place] SARS-CoV-2, RNA, NAAT NEGATIVE (NEGATIVE) 04/30/21 Range/Units 09:55 WBC 7.76 (4.8-10.8) K/uL RBC 4.02 L (4.2-5.4) M/uL Hgb 12.5 (12.0-16.0) g/dL Hct 37.6 (37-47) % MCV 93.5 (80-100) fL MCH 31.1 (25-34) pg MCHC 33.2 (32-36) g/dL RDW Std Deviation 47.7 H (36.4-46.3) fL RDW Coeff of Roni 13.8 (11.5-14.5) % Plt Count 183 (130-400) K/uL MPV 10.4 (7.4-10.4) fL COVID-19 Eval Order SARS-CoV-2, RNA, NAAT (NEGATIVE) Medications Administered Current Inpatient Medications Acetaminophen (Acetaminophen 325 Mg Tab) 650 mg PO Q6H PRN PRN Reason: Pain/DENIS/Fever Stop: 05/30/21 13:50 Benzocaine (Benzocaine 20% Aer Spr 82.5 Gm Can) 1 appln EXT PRN PRN PRN Reason: Perineal Discomfort Stop: 05/30/21 13:50 Bisacodyl (Bisacodyl 5 Mg Tabec) 5 mg PO 1999 [facility] Stop: 05/01/21 20:01 Bisacodyl (Bisacodyl 10 Mg Supp) 10 mg [place] DAILY PRN PRN Reason: No BM on 2nd post- day Stop: 05/30/21 13:50 Cocaine HCl (Supercream 0.870% 15 Gm Jar) 1 gm EXT BID PRN PRN Reason: Hemorrhoidal Inflammation Stop: 05/14/21 13:50 Docusate Sodium (Docusate Sodium 100 Mg Cap) 100 mg PO DAILY@ [facility] Stop: 05/30/21 20:59 Last Admin: 04/30/21 20:53 Dose: 100 mg Documented by: Hydrocortisone (Hydrocortisone Acetate 25 Mg Supp) 25 mg [place] BID PRN PRN Reason: Hemorrhoidal Inflammation Stop: 05/30/21 13:50 Oxytocin (Pitocin) 30 units in 500 mls @ 125 mls/hr IV .Q4H PRN; Protocol PRN Reason: Bleeding Control Ibuprofen (Ibuprofen 600 Mg Tab) 600 mg PO Q4H PRN PRN Reason: Pain/DENIS/Cramping/Fever Stop: 05/30/21 13:50 Last Admin: 05/01/21 04:28 Dose: 600 mg Documented by: Prenat Multivit/[place]/Iron/Folic Ac ( Vitamin 1 Tab) 1 tab PO DAILY@08 [facility] Stop: 05/31/21 07:59 <Chanel Booth MD - Last Filed: 05/01/21 07:35> Co-Signing Physician Notes Resident Physician Supervision Note: I interviewed and examined the patient. Discussed with Dr. Brooks and agree with findings and plan as documented in the note. Any exceptions or clarifications are listed here: [ ] Documented By: Chanel Booth MD, FACOG Resident Activity Tracking <Nicole Brooks DO - Last Filed: 05/01/21 07:24> Resident Involvement: Resident Care Provided Care Provided: OB Delivery
[2021-05-01] MEDS ORDERED: PRENATAL VITAMIN 1 TAB PO SCH (08:00)
[2021-05-01] MEDS ORDERED: bisacodyL 5 MG TABEC PO SCH (20:00)
[2021-05-01] MEDS: DOCUSATE SODIUM 100 MG CAP PO SCH (20:09)
[2021-05-02 06:54] LABS: Hematocrit (blood only) 39.5 % (37-47); Hemoglobin 13.2 g/dL (12.0-16.0)
[2021-05-02] MEDS: DOCUSATE SODIUM 100 MG CAP PO SCH (07:57)
[2021-05-02] MEDS: IBUPROFEN 600 MG TAB PO PRN (07:59)
--- NOTE | 2021-05-02 08:21 | Obstetrical Progress Note ---
Date of Service <Nicole ToddDO - Last Filed: 05/02/21 08:20> May 02, 2021 Assessment & Plan <Nicole Brooks DO - Last Filed: 05/02/21 08:20> (1) Encounter for care and examination after delivery: 30 yo post op day2 from , doing well. -Continue routine post care. -vital signs reviewed and WNL (Tmax 36.9) -Blood Type A+, GBS-, Rubella immune -Encourage ambulation, monitor and control pain with Motrin, tylenol PRN, resume regular diet, monitor lochia -encourage breast feeding -hemoglobin 12.7 (05/01) -discussed d/c, patient ready to go home Day #:: 2 <Sandi Meredith MD, FACOG - Last Filed: 05/02/21 08:29> (1) Encounter for care and examination after delivery: Subjective <Nciole Brooks DO - Last Filed: 05/02/21 08:20> Ambulation: ambulating normally Voiding: no voiding problems Passing Gas:: Yes Diet Tolerance:: regular diet Lochia:: Small Feeding Type:: breast feeding Current Pain Level(1-10): 4 (with cramps, otherwise pain well controlled with medication) Review of Systems Denies fever, chills, sweats Denies shortness of breath, difficulty breathing, chest pain, palpitations, chest pressure. Denies breast pain. Denies dysuria. Denies headache or changes in vision. Physical Exam <DO Salina Sommers Last Filed: 05/02/21 08:20> General: Alert, oriented. No acute distress. Cardiac: Regular rate and rhythm, no murmurs/rubs/gallops. Respiratory: Clear to auscultation bilaterally a/p, no wheezes/rales/rhonchi. No increased work of breathing. Symmetrical chest rise. No respiratory distress. Abdomen: Soft, nontender, nondistended. Bowel sounds present. Uterus: Uterine fundus firm, palpable at umbilicus. Lower Extremities: No lower extremity edema or swelling. No deep calf pain. Adán's negative bilaterally.. Results & Data ([facility]) <DO Salina Sommers Last Filed: 05/02/21 08:20> Vital Signs (Past 12 Hours) Vital Signs Temp Pulse Resp BP Pulse Ox 05/01/21 23:12 36.4 C L 72 16 94/60 L 95 Laboratory Results 05/02/21 Range/Units 06:23 Hgb 13.2 (12.0-16.0) g/dL Hct 39.5 (37-47) % Medications Administered Current Inpatient Medications Acetaminophen (Acetaminophen 325 Mg Tab) 650 mg PO Q6H PRN PRN Reason: Pain/DENIS/Fever Stop: 05/30/21 13:50 Benzocaine (Benzocaine 20% Aer Spr 82.5 Gm Can) 1 appln EXT PRN PRN PRN Reason: Perineal Discomfort Stop: 05/30/21 13:50 Bisacodyl (Bisacodyl 10 Mg Supp) 10 mg CO DAILY PRN PRN Reason: No BM on 2nd post- day Stop: 05/30/21 13:50 Cocaine HCl (Supercream 0.870% 15 Gm Jar) 1 gm EXT BID PRN PRN Reason: Hemorrhoidal Inflammation Stop: 05/14/21 13:50 Docusate Sodium (Docusate Sodium 100 Mg Cap) 100 mg PO DAILY@ [facility] Stop: 05/30/21 20:59 Last Admin: 05/02/21 07:57 Dose: 100 mg Documented by: Hydrocortisone (Hydrocortisone Acetate 25 Mg Supp) 25 mg CO BID PRN PRN Reason: Hemorrhoidal Inflammation Stop: 05/30/21 13:50 Oxytocin (Pitocin) 30 units in 500 mls @ 125 mls/hr IV .Q4H PRN; Protocol PRN Reason: Bleeding Control Ibuprofen (Ibuprofen 600 Mg Tab) 600 mg PO Q4H PRN PRN Reason: Pain/DENIS/Cramping/Fever Stop: 05/30/21 13:50 Last Admin: 05/02/21 07:59 Dose: 600 mg Documented by: Prenat Multivit/Fine [employer] Artist/Iron/Folic Ac ( Vitamin 1 Tab) 1 tab PO DAILY@08 [facility] Stop: 05/31/21 07:59 Last Admin: 05/02/21 07:57 Dose: 1 tab Documented by: <Sandi Meredith MD, FACOG - Last Filed: 05/02/21 08:29> Co-Signing Physician Notes Resident Physician Supervision Note: I interviewed and examined the patient. Discussed with Dr. Brooks and agree with findings and plan as documented in the note. Any exceptions or clarifications are listed here: Doing well Desires d/c. Instructions given. Documented By: Sandi Meredith MD, FACOG Resident Activity Tracking <Nicole Brooks, DO - Last Filed: 05/02/21 08:20> Resident Involvement: Resident Care Provided Care Provided: OB Delivery
[2021-05-02 08:30] VITALS: BP 98/62; PULSE 80; TEMP 97.9; O2SAT 96
== END 2021-05-02 10:40 | disposition home or self-care (01) | DRG 807 ==
LOC: 4S1 09:09 → 4S2 16:01